=== PATIENT | female | born 1970 | race Caucasian/White ===

== ENCOUNTER 2021-01-23 15:01 | Outpatient (REF) | payer MEDICAID, SELFPAY ==
[2021-01-24 16:21] LABS: COVID-19 RT-PCR UVMMC Result Negative (Negative)
== END 2021-01-23 15:02 | disposition home or self-care (01) ==
LOC: LBN 15:01
PROVIDERS: Referring Provider Physician Assistant Medical; Visit Provider Physician Assistant Medical
DX: J02.9 Acute pharyngitis, unspecified (principal); Z20.822 Contact with and (suspected) exposure to COVID-19
CPT/HCPCS: U0003; 87070